=== PATIENT | male | born 1965 | race Caucasian/White ===

== ENCOUNTER 2019-01-01 05:18 | Observation (INO) | payer OTHER, SELFPAY ==
[2018-12-21 14:54] VITALS: BP 126/77; PULSE 66; RESP 17; TEMP 37; O2SAT 98; BMI 38.6
--- NOTE | 2018-12-21 15:15 | SDCEKG_ITS ---
Test Reason : Blood Pressure : / mmHG Vent. Rate : 062 BPM Atrial Rate : 062 BPM P-R Int : 178 ms QRS Dur : 098 ms QT Int : 426 ms P-R-T Axes : 038 001 011 degrees QTc Int : 432 ms Normal sinus rhythm Incomplete right bundle branch block Borderline ECG Confirmed by CYDNEY NICKERSON, KEZIA ([id number]), editorial director STEPHANE HARPER ([id number]) on 12/26/2018 11:58:16 AM Referred By: Brian Yang Confirmed By:KEZIA LAMAS MD
[2018-12-21 15:58] LABS: Absolute Lymphocyte Count 1.56 X10^3/ul (0.83-4.51); Absolute Neutrophil Count 5.6 X10^3/uL (2.0-7.7); Basophil# 0.02 X10^3/uL; Basophil% 0.2 % (0-1); Eosinophil# 0.21 X10^3/uL; Eosinophils% 2.6 % (0-5); Hematocrit 43.5 % (40-54); Hemoglobin 14.8 g/dl (13.0-16.5); Lymphocyte # 1.56 X10^3/ul (4.0); Lymphocyte % 19.4 % (19-41); Mean Corpuscular Hgb 30.6 pg (27.0-32.0); Mean Corpuscular Volume 89.9 fL (80-94); Mean Platelet Vol. 11.1 fl (6.2-12.0); Monocyte# 0.63 X10^3/uL; Monocyte% 7.8 % (0-10); Neutrophil # 5.59 X10^3/uL (2.7-7.7); Neutrophil % 69.5 % (47-70); Platelet Count 140 K/mm3 (150-450); RBC Distribution Width CV 12.3 % (11.6-14.6); RBC Distribution Width SD 39.8 fl (35.1-43.9); Red Blood Count 4.84 M/mm3 (4.6-6.2); White Blood Count 8.1 K/mm3 (4.4-11.0)
[2018-12-21 16:04] LABS: POSITIVE COUNT NO; POSITIVE DIFFERENTIAL NO; POSITIVE MORPHOLOGY NO
[2018-12-21 16:14] LABS: Anion Gap 8 (5-15); BUN 15 mg/dL (7-18); BUN/Creat Ratio 16.3 RATIO (10-20); Calcium,Total 8.9 mg/dL (8.5-10.1); Chloride 108 mmol/L (98-107); Creatinine, Serum 0.92 mg/dL (0.70-1.30); EST Glomerular Filtration Rate 91 mL/min (>60); Est Glom Filt Rate - Afr Amer 110 mL/min (>60); Estimated Creatinine Clearance 87.77 ml/min; Glucose 79 mg/dL (74-106); Potassium 4.1 mmol/L (3.5-5.1); Sodium Level 142 mmol/L (136-145)
--- NOTE | 2018-12-27 13:45 | CASEMGMT ---
Call placed to patient to discuss discharge needs after upcoming surgery. Patient plans to return home with assistance from daughter. Patient has outpatient PT set up at [facility] in [place] and daughter will be able to assist with transportation. Patient inquired when he will be able to drive post-op, advised patient that his physician will let him know when he's able to drive but when he leaves [facility] he will be told not to drive. Patient has a walker, he believes his daughter purchased a toilet riser for him but he does not have a shower seat or grab bars. Patient asked if he needed to get a shower seat, informed patient that it's his preference but insurance won't cover cost of shower seat. Patient has a bedroom and bathroom on the 1st level of his home. There are 4 steps to enter home at each entrance. Informed patient that RN-CM will likely follow up after surgery to further assist with discharge planning. Polly Black LPN Clinical Support
--- NOTE | 2018-12-27 15:23 | NURSING ---
TC to patient to invite to dinner and class if he is interested. He said he didn't think he would make the extra trip up for the class. He has reviewed his book and everyone has answered his questions. He will call if he has any questions before tuesday.
[2019-01-01] VITALS (11 sets, daily range): BP systolic 104–140; BP diastolic 64–85; PULSE 58–72; RESP 16–18; TEMP 36.4–37; O2SAT 96–100; BMI 38.6
[2019-01-01] MEDS: oxyCODONE HCl Cr 10 MG Tablet PO (06:12)
[2019-01-01] MEDS: Celecoxib 200 MG Capsule 400 MG PO (06:12)
[2019-01-01] MEDS: Acetaminophen 500 MG Tablet 1000 MG PO ×3 (06:12→22:42)
[2019-01-01] MEDS: Lactated Ringers 1,000 ML 999 ML IV (06:27)
--- NOTE | 2019-01-01 07:15 | KNEE_PTH ---
PATIENT: MOE CRUZ LOC: MS3 U#:[id number] AGE/SX: 53/M ROOM: MS311 RE01/01/[address]: Dr. Brian Yang DO : 1965 BED: 1 DIS: 01/02/2019 SPEC #: [id number] RECD: 01/01/19 12:46 STATUS: CASSIDY REQ #: [id number] YMA: 01/01/19 07:[address]: Brian Yang DEPT: SURGICAL PATHOLOGY RECD BY: Johnathon Persaud ENTERED: 01/01/19 14:52 SP TYPE: TOTAL KNEE OTHR DR: Dr. Rj Naylor DO Tissues: Knee, NOS Procedures: Decalcification bone/plaque Surgery Specimen Level IV HEADER OPERATION: Total knee replacement PRE-OP DIAGNOSIS: Unilateral primary osteoarthritis right knee TISSUE SUBMITTED: Patella MICROSCOPIC DIAGNOSIS Right knee, patella: Bone and degenerative hyaline cartilage. Synovial hyperplasia with chronic inflammation, clinically primary osteoarthritis. CE:rg 2/28/19 MICROSCOPIC DESCRIPTION Slides are reviewed. GROSS DESCRIPTION Received is one container designated patella. The specimen consists of multiple fragments of guzman-yellow bone measuring in aggregate 12 x 12 x 4 cm. Also in the specimen container are multiple fragments of yellow-white soft tissue measuring in aggregate 10 x 10 x 3 cm. A number of bony fragments contain articular surfaces consistent with tibial plateau and femoral condyle and displaying prominent osteophyte formation, eburnation, and bone erosion. Affiliate Marketing Coordinator sections are submitted in two cassettes as follows: 1 - soft tissue, 2 - bone after decalcification. / SJ:su 01/01/19 TC: 3 CPT: 75458, 75472
[2019-01-01] MEDS: Cefazolin 2 GM in 0.9% Normal Saline 100 ML IV (07:18)
--- NOTE | 2019-01-01 08:30 | PCM.OPRPT ---
Report of Operation Date of Procedure: 01/01/19 Pre-Operative Diagnosis: OA right knee Post-Operative Diagnosis: same Surgery/Procedure Performed:: Right TKR Description of Surgical Findings:: Primary Surgeon/Physician: Brian Yang call center analyst: Alan Franks PA-C call center analyst: Pre-Operative Diagnosis: OA right knee Post-Operative Diagnosis: same Surgery/Procedure Performed: Right TKR Estimated Blood Loss: 25cc Specimen's Removed: bone Type of Anesthesia: spinal ASA Class: 3 Implants: [Karime Triathlon size 5 CR femur, size 5 tibia, 9 mm polyethylene, 35 mm patella (all components press fit) ] Indications: Patient has severe end-stage osteoarthritis diagnosed via x-rays in the knee. They have failed all forms of conservative measures including activity modification, injections, anti-inflammatories, use of assistive device. The patient has pain that affects on a daily basis and prevents him from doing things that they enjoyed. They have elected to undergo the above procedure. The risks of the procedure were discussed at length and their questions were answered. Procedure Description: The patient was greeted in the preoperative area. The [right ] knee was then marked with a surgical marker. Patient was then taken to or Suite 2. They were administered a dose of antibiotics as well as tranexamic acid. Once adequate anesthesia was obtained and airway was secured to placed in supine position on the operating room table. A well-padded tourniquet was placed on the affected extremity. Leg was then prepped and draped in the usual sterile fashion from the knee down. Ioban was used on the skin. Surgical timeout was then performed and confirmed with all present. Six-inch Esmarch was used to examine the limb and tourniquet was then inflated to 250 mmHg. A longitudinal incision was then planned and carried out in the anterior aspect of the knee. The dissection was then carried the length of the incision the extensor mechanism was identified. Standard medial parapatellar arthrotomy was then performed revealing severe eburnation of bone and periarticular osteophytes. There is complete loss of cartilage especially in the medial compartment with varus alignment. Anterior fat pad was removed for visualization purposes and the anterior medial aspect of the tibia was skeletonized for exposure to the knee. The knee was then flexed the patella was inverted. Opening reamer was then used in the femur approximately 1 cm anterior to the attachment of the PCL. The intramedullary valgus wand was then placed in the femur set at 5? of valgus. The distal femoral cutting jig was then applied to the femur with anticipated resection of approximately 8 mm. This was then made with a oscillating saw. The sizing guide was then placed referencing off the posterior condyles and also reference off the epicondylar axis. This was measured and the appropriate size 4-in-1 cutting jig was then applied to the distal femur. Anterior posterior cuts were made followed by the anterior and posterior chamfer cuts. These bony pieces and fragments were removed and placed on the back table. Posterior retractor was then utilized and the tibia was subluxed anteriorly. Intramedullary tibial alignment jig was then applied to the tibia referencing off the medial one third of the tibial tubercle the anterior tibial spine the middle aspect of the tibiotalar joint. Also reference off patient's [place] slope. The tibial cutting jig was then pinned with anticipated resection of 2 mm off of the deficient medial tibial condyle. This cut was made with the oscillating saw. Once this was complete a laminar glue spreader was utilized in both medial lateral meniscus were removed and a posterior capsular osteophytes were also removed. Posterior capsule release was performed in the posterior capsule as well as the geniculate arteries are treated with the aqua Yajaira. The tibia was incised and the appropriate sized tibial tray was then pinned. The femoral trial was then placed and the knee was trialed. Full flexion-extension were easily achieved. The knee seemed to balance quite nicely. Any remaining osteophytes were removed at this time. Once this was complete the patella was everted and the Cristhian patella reaming device was then utilized the patella was then placed in the appropriate jig and reamer was then used to remove approximately 9 mm of the undersurface of the patella. A soft tissue remaining was in the way was removed and patella trial was then placed listed maintain excellent tracking using the no thumbs technique. The tibial tray at this point was punched to accommodate the fins of the final implant. The trial components were removed and the knee was copiously irrigated. Did use a cocktail of injection for postoperative pain control. The final components were then placed in the standard fashion and patellar clamp is placed in the patella. The tourniquet was deflated and hemostasis was perfect with Bovie cautery as well as the aqua Manus. Needle is once again trialed with different size polyethylenes to ensure the full range of motion was achieved as well as excellent balancing ligamentously was achieved. At this point the knee was copiously irrigated. Final implant was then inserted locking mechanism was engaged and confirmed to be locked. The arthrotomy was then closed with #1 Vicryl aggravate type fashion interrupted. Subcutaneous tissue was closed with 0 Vicryl and surgical carlo were placed in the skin. A occlusive silver impregnated dressing was then applied followed by well-padded sterile dressing secured with an Marcus wrap. The patient was taken to the PACU in stable condition. No complications known at this time. Postoperatively we will maintain standard total knee postoperative protocol. The use of the physician surgical supply assistant was integral during this procedure. They assisted with positioning placement of the tourniquet retracting closure and placement of the dressing. The procedure would have been much more difficult without their expertise and assistance call center analyst: Alan Franks Type of Anesthesia:: Spinal Anesthesiologist: Radames Canchola Specimen's removed: bone Drains: none Estimated Blood Loss (mL): 25cc - Admit VTE Documentation VTE Present on Admission: No VTE Mechan Device Prophylaxis: SCD's, Thigh High CHRYSTAL Hose VTE Pharm Prophylaxis ordered?: Yes
--- NOTE | 2019-01-01 08:36 | OP.PCM_ITS ---
Report of Operation Date of Procedure: 01/01/19 Pre-Operative Diagnosis: OA right knee Post-Operative Diagnosis: same Surgery/Procedure Performed:: Right TKR Description of Surgical Findings:: Primary Surgeon/Physician: Brian Yang timekeeping supervisor: Alan Franks PA-C timekeeping supervisor: Pre-Operative Diagnosis: OA right knee Post-Operative Diagnosis: same Surgery/Procedure Performed: Right TKR Estimated Blood Loss: 25cc Specimen's Removed: bone Type of Anesthesia: spinal ASA Class: 3 Implants: [Karime Triathlon size 5 CR femur, size 5 tibia, 9 mm polyethylene, 3 5 mm patella (all components press fit) ] Indications: Patient has severe end-stage osteoarthritis diagnosed via x-rays in the knee. They have failed all forms of conservative measures including activity modification, injections, anti-inflammatories, use of assistive device. The patient has pain that affects on a daily basis and prevents him from doing things that they enjoyed. They have elected to undergo the above procedure. The risks of the procedure were discussed at length and their questions were answered. Procedure Description: The patient was greeted in the preoperative area. The [right ] knee was then marked with a surgical marker. Patient was then taken to or Suite 2. They were administered a dose of antibiotics as well as tranexamic acid. Once adequate anesthesia was obtained and airway was secured to placed in supine position on the operating room table. A well-padded tourniquet was placed on the affected extremity. Leg was then prepped and draped in the usual sterile fashion from the knee down. Ioban was used on the skin. Surgical timeout was then performed and confirmed with all present. Six-inch Esmarch was used to examine the limb and tourniquet was then inflated to 250 mmHg. A longitudinal incision was then planned and carried out in the anterior aspect of the knee. The dissection was then carried the length of the incision the extensor mechanism was identified. Standard medial parapatellar arthrotomy was then performed revealing severe eburnation of bone and periarticular osteophytes. There is complete loss of cartilage especially in the medial compartment with varus alignment. Anterior fat pad was removed for visualization purposes and the anterior medial aspect of the tibia was ske letonized for exposure to the knee. The knee was then flexed the patella was inverted. Opening reamer was then used in the femur approximately 1 cm anterior to the attachment of the PCL. The intramedullary valgus wand was then placed in the femur set at 5? of valgus. The distal femoral cutting jig was then applied to the femur with anticipated resection of approximately 8 mm. This was then ma de with a oscillating saw. The sizing guide was then placed referencing off the posterior condyles and also reference off the epicondylar axis. This was measured and the appropriate size 4-in-1 cutting jig was then applied to the distal femur. Anterior posterior cuts were made followed by the anterior and posterior chamfer cuts. These bony pieces and fragments were removed and placed on the back table. Posterior retractor was then utilized and the tibia was subluxed anteriorly. Intramedullary tibial alignment jig was then applied to the tibia referencing off the medial one third of the tibial tubercle the anterior tibial spine the middle aspect of the tibiotalar joint. Also reference off patient's [place] slope. The tibial cutting jig was then pinned with anticipated resection of 2 mm off of the deficient medial tibial condyle. This cut was made with the oscillating saw. Once this was complete a laminar support group manager was utilized in both medial lateral meniscus were removed and a p osterior capsular osteophytes were also removed. Posterior capsule release was performed in the posterior capsule as well as the geniculate arteries are treated with the aqua Yajaira. The tibia was incised and the appropriate sized tibial tray was then pinned. The femoral trial was then placed and the knee was trialed. Full flexion-extension were easily achieved. The knee seemed to balance quite nicely. Any remaining osteophytes were removed at this time. Once this was complete the patella was everted and the Cristhian patella reaming device was then utilized the patella was then placed in the appropriate jig and reamer was then used to remove approximately 9 mm of the undersurface of the patella. A soft tissue remaining was in the way was removed and patella trial was then placed listed maintain excellent tracking using the no thumbs technique. The tibial tray at this point was punched to accommodate the fins of the final implant. The trial components were removed and the knee was copiously irrigated. Did use a cocktail of injection for postoperative pain control. The final components were then placed in the standard fashion and patellar clamp is placed in the patella. The tourniquet was deflated and hemostasis was perfect with Bovie cautery as well as the aqua Manus. Needle is once again trialed with different size polyethylenes to ensure the full range of motion was achieved as well as excellent balancing ligamentously was achieved. At this point the knee was copiously irrigated. Final implant was then inserted locking mechanism was engaged and confirmed to be locked. The arthrotomy was then closed with #1 Vicryl aggravate type fashion interrupted. Subcutaneous tissue was closed with 0 Vicryl and surgical carlo were placed in the skin. A occlusive silver impregnated dressing was then applied followed by well-padded sterile dressing secured with an Marcus wrap. The patient was taken to the PACU in stable condition. No complications known at this time. Postoperatively we will maintain standard total knee postoperative protocol. The use of the physician export sales assistant was integral during this procedure. They assisted with positioning placement of the tourniquet retracting closure and placement of the dressing. The procedure would have been much more difficult without their expertise and assistance timekeeping supervisor: Alan Franks Type of Anesthesia:: Spinal Anesthesiologist: Radames Canchola Specimen's removed: bone Drains: none Estimated Blood Loss (mL): 25cc - Admit VTE Documentation VTE Present on Admission: No VTE Mechan Device Prophylaxis: SCD's, Thigh High CHRYSTAL Hose VTE Pharm Prophylaxis ordered?: Yes
[2019-01-01] MEDS: Scopolamine 1mg/72hr Patch 1 PATCH TD (09:15)
[2019-01-01 09:27] LABS: Hematocrit 41.4 % (40-54); Hemoglobin 14.1 g/dl (13.0-16.5); Mean Corp Hgb Conc 34.1 g/gl (32-36); Mean Corpuscular Hgb 31.1 pg (27.0-32.0); Mean Corpuscular Volume 91.2 fL (80-94); Platelet Count 100 K/mm3 (150-450); RBC Distribution Width CV 11.9 % (11.6-14.6); RBC Distribution Width SD 39.1 fl (35.1-43.9); Red Blood Count 4.54 M/mm3 (4.6-6.2); Scan Indicated on CBC? Y/N NO; White Blood Count 6.4 K/mm3 (4.4-11.0)
[2019-01-01 09:36] LABS: Anion Gap 5 (5-15); BUN 18 mg/dL (7-18); BUN/Creat Ratio 20.5 RATIO (10-20); Chloride 109 mmol/L (98-107); Creatinine, Serum 0.88 mg/dL (0.70-1.30); EST Glomerular Filtration Rate 96 mL/min (>60); Est Glom Filt Rate - Afr Amer 116 mL/min (>60); Estimated Creatinine Clearance 91.76 ml/min; Glucose 103 mg/dL (74-106); Potassium 4.1 mmol/L (3.5-5.1); Sodium Level 138 mmol/L (136-145)
[2019-01-01] MEDS: Lactated Ringers 1,000 ML 125 ML IV ×2 (09:38→18:11)
[2019-01-01] MEDS: Cefazolin 1 GM/50 ML BAG IV ×2 (16:03→22:43)
[2019-01-01] MEDS: oxyCODONE 5 MG Tablet PO ×2 (18:10→22:43)
[2019-01-01] MEDS: Ketorolac 15 MG/ML Vial IV (18:59)
[2019-01-01] MEDS: Senna/Docusate Sodium 1 Tablet 2 TABLET PO (22:42)
[2019-01-02] MEDS: Ketorolac 15 MG/ML Vial IV (01:28)
[2019-01-02] MEDS: 0.9% NaCl Peripheral Flush Adult/Peds IV (01:40)
[2019-01-02] MEDS: Lactated Ringers 1,000 ML 125 ML IV (01:40)
[2019-01-02 02:49] VITALS: BP 128/67; PULSE 84; RESP 18; TEMP 37.2; O2SAT 95
--- NOTE | 2019-01-02 06:02 | NURSING ---
This RN was trying to d/c the patient's fluids per MD orders & accidentally d/c'd the patient's Tylenol by mistake. Called pharmacy & they stated will restart the order.
[2019-01-02 06:16] LABS: Hematocrit 40.9 % (40-54); Hemoglobin 13.8 g/dl (13.0-16.5); Mean Corp Hgb Conc 33.7 g/gl (32-36); Mean Corpuscular Hgb 30.8 pg (27.0-32.0); Mean Corpuscular Volume 91.3 fL (80-94); Mean Platelet Vol. 11.5 fl (6.2-12.0); Platelet Count 119 K/mm3 (150-450); RBC Distribution Width CV 11.9 % (11.6-14.6); RBC Distribution Width SD 39.3 fl (35.1-43.9); Red Blood Count 4.48 M/mm3 (4.6-6.2); White Blood Count 9.8 K/mm3 (4.4-11.0)
[2019-01-02 06:22] LABS: Scan Indicated on CBC? Y/N NO
[2019-01-02] MEDS: oxyCODONE 5 MG Tablet PO ×2 (06:24→11:14)
[2019-01-02] MEDS: Acetaminophen 500 MG Tablet 1000 MG PO (06:24)
[2019-01-02 06:26] LABS: Anion Gap 9 (5-15); BUN 14 mg/dL (7-18); BUN/Creat Ratio 16.4 RATIO (10-20); Calcium,Total 8.2 mg/dL (8.5-10.1); Chloride 103 mmol/L (98-107); Creatinine, Serum 0.85 mg/dL (0.70-1.30); EST Glomerular Filtration Rate 99 mL/min (>60); Est Glom Filt Rate - Afr Amer 120 mL/min (>60); Glucose 96 mg/dL (74-106); Potassium 4.2 mmol/L (3.5-5.1); Sodium Level 138 mmol/L (136-145)
--- NOTE | 2019-01-02 07:56 | PCM.PN.ORT ---
Subjective: Patient sitting at bedside eating breakfast. Patient states pain is well managed. Denies chest pain, shortness breath, calf pain, nausea vomiting. Patient states he is ready for discharge home today. Objective: Dressings clean dry intact. Patient's dressing was changed by nursing staff as it was pledgets soaked. Patient has no active bleeding at this time vital signs labs all within normal limits. Negative signs and symptoms of DVT. Patient is afebrile neurovascular is otherwise intact. - Physical Exam General: Alert, Oriented x3, Cooperative HEENT: PERRLA Neurological: Cranial nerves II-XII grossly intact Psych/Mental Status: Normal Affect, Alert and oriented to time, place, person, mood and affect Vital Signs Temp Pulse Resp BP Pulse Ox 99 F 84 18 128/67 H 95 01/02/19 02:49 01/02/19 02:49 01/02/19 02:49 01/02/19 02:49 01/02/19 02:49 Oxygen Flow Rate (L/min) 2 Oxygen Delivery Method Room Air Weight: 116.9 kg Body Mass Index (BMI) 38.6 Intake and Output for Last 24 Hours 12/31/18 01/01/19 01/02/19 23:59 23:59 23:59 Intake Total 1372 / 1372 2269 / 2269 Output Total 125 / 125 Balance 1372 / 1372 2144 / 2144 Laboratory Tests Past 24 Hrs 01/01/19 01/01/19 01/02/19 09:16 09:16 05:35 WBC 6.4 9.8 RBC 4.54 L 4.48 L Hgb 14.1 13.8 Hct 41.4 40.9 MCV 91.2 91.3 MCH 31.1 30.8 MCHC 34.1 33.7 RDW 11.9 11.9 RDW Differential 39.1 39.3 Plt Count 100 L 119 L MPV 11.0 11.5 Sodium 138 Potassium 4.1 Chloride 109 H Carbon Dioxide 24.0 Anion Gap 5 BUN 18 Creatinine 0.88 Estim Creat Clear Calc 91.76 Est GFR (MDRD) Af Amer 116 Est GFR (MDRD) Non-Af 96 BUN/Creatinine Ratio 20.5 H Glucose 103 Calcium 8.0 L 01/02/19 05:35 WBC RBC Hgb Hct MCV MCH MCHC RDW RDW Differential Plt Count MPV Sodium 138 Potassium 4.2 Chloride 103 Carbon Dioxide 26.0 Anion Gap 9 BUN 14 Creatinine 0.85 Estim Creat Clear Calc 95.00 Est GFR (MDRD) Af Amer 120 Est GFR (MDRD) Non-Af 99 BUN/Creatinine Ratio 16.4 Glucose 96 Calcium 8.2 L Medical Necessity - Tobacco Use Smoking Status: Former smoker Tobacco Use: Cigarettes Assessment/Plan Status post right total knee arthroplasty Plan 1. Continue all pain medications as prescribed 2. Continue physical therapy weight-bear as tolerated with walker 3. Aspirin 325 mg 1 p.o. every 12 hours times 30 days for postop DVT prophylaxis 4. Encourage incentive spirometry 5. Patient will continue outpatient physical therapy, and [facility] 6. Follow-up as scheduled, see pink sheet 7. Discharge home today after p.m. therapy
--- NOTE | 2019-01-02 08:02 | DCINST_ITS ---
Discharge Diet: No Restrictions Discharge Activity: May Not Drive, May Shower, Use Walker May shower in (days): 3 Ice area for (Minutes): 20 - each hour while awake. Weight Bearing Status: Weight bearing as tolerated Elevate: Operative Extremity Additional Activity Instructions:: Wear elastic stockings for 2 weeks after your surgery. Call your doctor if your incision/area has: Continuous Slow Oozing, Sudden Increased Bleeding, Increased Pain/ Swelling, Increased Redness, Foul Smelling Discharge Call your doctor if you observe: Fever of 101 or Higher, Coldness, Increased Pain - in extremity, Numbness or Tingling, Change in Color, Calf discomfort, Uncontrolled pain Change Dressing in (Days):: 0 - and daily as needed. Remove Dressing in (days):: 8 Cleanse incision/area with: Soap & Water Allergies/Adverse Reactions: Allergies No Known Allergies Allergy (Verified 12/21/18 14:48) Medications to take at Discharge Ibuprofen 200 mg PO PRN PRN 12/21/18 Oxymetazoline HCl [Nasal Decongestant] 5 spray NS DAILY 12/21/18 Acetaminophen [Tylenol] 1,000 mg PO Q8 #90 tab 01/02/19 Aspirin 325 mg PO BID #60 tab 01/02/19 Oxycodone [Oxyir] 5 - 10 mg PO Q4H PRN PRN 7 Days #84 tab 01/02/19 The following prescriptions were given: Oxycodone [Oxyir] 5 - 10 mg PO Q4H PRN PRN 7 Days #84 tab PRN Reason: Mod-Severe Pain (4-10/10) Acetaminophen [Tylenol] 1,000 mg PO Q8 #90 tab Aspirin 325 mg PO BID #60 tab Primary Care Physician: Rj Naylor [Primary Care Provider] - Test Results: Test results from this visit will be discussed in further detail at your follow- up appointment, if applicable. Please Follow Up With: Brian Yang DO When: as scheduled (see pink sheet)
[2019-01-02 08:58] VITALS: BP 114/67; PULSE 82; RESP 16; TEMP 36.7; O2SAT 97
[2019-01-02] MEDS: Senna/Docusate Sodium 1 Tablet 2 TABLET PO (09:27)
[2019-01-02] MEDS: Aspirin 325 MG Tablet PO (09:33)
--- NOTE | 2019-01-02 10:20 | CASEMGMT ---
KENNY LINDSAY Face to Face with patient for initial transition planning/care coordination assessment. RN CM introduced self and role at [facility]. Patient sitting in chair, alert and oriented. Patient willing to participate in assessment and is able to answer all questions appropriately. Care providers, pharmacy, and demographics verified. Patient wishes to discharge home and is setup with [facility] in [place] for outpatient therapy. Patient states he has no further needs or concerns at this time. CM to follow for discharge planning needs that may arise. PCP: John Specialists: None Pref[facility] Insurance: MMO Prescription Benefit: Yes Living Will/HPOA: Yes, daughter Heather Segura HPOA LNOK: Daughter Living Arrangements: Patient lives alone in house with bed and bath on 1st floor. 4 steps to enter the home. Patient independent prior to surgery Transportation: Daughter DME/HHC: Patient states he has shower chair, raised toilet seat, walker at home. Patient denies home oxygen, cpap, bipap, or nebulizer. Disposition Plan: Patient to discharge home with outpatient therapy, family support, and follow-up plans in place. Shamika GUTIERREZ, RN, CM
== END 2019-01-02 14:58 | disposition home or self-care (01) ==
LOC: MS3 13:47 → ACINP 13:47
PROVIDERS: Admitting Provider Orthopaedic Surgery; Family Provider Family Medicine; PCP Family Medicine; Referring Provider Orthopaedic Surgery; Visit Provider Orthopaedic Surgery
PROC: (CPT 27447; principal; 2019-01-01 06:50)
DX: M17.11 Unilateral primary osteoarthritis, right knee (principal); Z87.891 Personal history of nicotine dependence
CPT/HCPCS: 27447; 64447; 36415; 80048; 85025; 85027; 87081; 88305; 88311; 93005; 96361; 96365; 96366; 96375; 96376; 97110; 97161; 97165; 97530; 99218; C1776; J7120; A4216; G0378; G0379

== ENCOUNTER → 2019-01-12 15:44 | Outpatient (CLI) | payer OTHER, SELFPAY ==
[2019-01-01 05:48] VITALS: BMI 38.6
--- NOTE | 2019-01-12 15:48 | VDLE_ITS ---
Reason For Study: LEG PAIN RIGHT LEFT GSV is normal. CFV is compressible, spontaneous, phasic, CFV is compressible, spontaneous, phasic, competent, and demonstrates normal competent and demonstrates normal augmentation. augmentation. FV is compressible, spontaneous, phasic, competent and demonstrates normal augmentation. POP V is compressible, spontaneous, phasic, competent and demonstrates normal augmentation. T/P Trunk is compressible. PTV is compressible. RT PerV is compressible. Procedure Exam performed in department. A preliminary report was called and/or faxed to Ashly Franks. Interpretation Summary Deep veins of the right lower extremity are patent and compressible segmentally. There is no evidence of right lower extremity deep vein thrombosis. Valvular competence appears intact within the proximal deep venous system on the right . The right greater saphenous vein appears patent and compressible segmentally. Ordering Physician: Alan Franks Referring Physician: Alan Franks Performed By: Kamila Adams RVT
== END ==
PROVIDERS: Family Provider Family Medicine; PCP Family Medicine; Referring Provider Physician Assistant; Visit Provider Physician Assistant
DX: M79.661 Pain in right lower leg (principal)
CPT/HCPCS: 93971